=== PATIENT | female | born 1990 | race African-American/Black ===

== ENCOUNTER 2017-05-22 13:49 | Emergency (ER) | payer MEDICAID ==
[~2017-05-22] VITALS: Ht 157.5 cm; Wt 66.0 kg
[2017-05-22] MEDS ORDERED: KETOROLAC 60MG/2ML VIAL IM ONE (15:00)
[2017-05-22 15:08] VITALS: BP 137/90
== END 2017-05-22 17:51 | disposition home or self-care (01) ==
LOC: ER 14:36
DX: H60.91 Unspecified otitis externa, right ear (principal); F12.90 Cannabis use, unspecified, uncomplicated
CPT/HCPCS: 81025; 96372; 99283; J1885; X7700; Z7610

== ENCOUNTER 2017-08-15 16:01 | Emergency (ER) | payer MEDICAID ==
[~2017-08-15] VITALS: Ht 157.5 cm; Wt 79.0 kg
[2017-08-15 16:32] VITALS: BP 126/90
[2017-08-15] MEDS ORDERED: ACETAMINOPHEN 500MG TABLET PO ONE (17:30)
== END 2017-08-15 17:42 | disposition home or self-care (01) ==
LOC: ER 16:54
DX: B34.9 Viral infection, unspecified (principal); F12.10 Cannabis abuse, uncomplicated
CPT/HCPCS: 99283

== ENCOUNTER 2018-04-20 13:35 | Emergency (ER) | payer MEDICAID ==
[~2018-04-20] VITALS: Ht 157.5 cm; Wt 78.0 kg
[2018-04-20] MEDS ORDERED: IBUPROFEN 800MG TABLET PO ONE (15:00)
[2018-04-20 15:19] VITALS: BP 122/72
== END 2018-04-20 19:14 | disposition home or self-care (01) ==
LOC: ER 15:31
DX: K04.7 Periapical abscess without sinus (principal); F17.210 Nicotine dependence, cigarettes, uncomplicated
CPT/HCPCS: 81025; 99283

== ENCOUNTER 2018-11-23 07:45 | Emergency (ER) | payer MEDICAID ==
[~2018-11-23] VITALS: Ht 162.6 cm; Wt 65.0 kg
[2018-11-23] MEDS ORDERED: HYDROCODONE/ACETAMINOPHEN 5/325MG TABLET PO ONE (09:30)
[2018-11-23 09:33] VITALS: BP 127/77
== END 2018-11-23 11:13 | disposition home or self-care (01) ==
LOC: ER 07:45
DX: M25.571 Pain in right ankle and joints of right foot (principal); W01.0XXA Fall on same level from slipping, tripping and stumbling without subsequent striking against object, initial encounter; Y93.01 Activity, walking, marching and hiking; Y92.090 Kitchen in other non-institutional residence as the place of occurrence of the external cause
CPT/HCPCS: 73610; 73620; 81025; 99283

== ENCOUNTER 2025-06-11 12:55 | Emergency (ER) | payer MEDICAID, OTHER ==
[~2025-06-11] VITALS: Ht 157.5 cm; Wt 87.0 kg
[2025-06-11 13:28] VITALS: O2SAT 100
[2025-06-11] MEDS ORDERED: AMOX1TAB16 MT (14:37)
[2025-06-11] MEDS ORDERED: IBUP-2030 MT (14:37)
[2025-06-11] MEDS: KETOROLAC 30MG/ML VIAL IM ONE (14:53)
[2025-06-11] MEDS: HYDROCODONE/ACETAMINOPHEN 5/325MG TABLET PO ONE (14:53)
[2025-06-11 14:54] VITALS: BP 119/85; PULSE 68; RESP 18; TEMP 36.9; O2SAT 100
== END 2025-06-11 15:00 | disposition home or self-care (01) ==
LOC: ER 12:55
DX: K04.7 Periapical abscess without sinus (principal)
CPT/HCPCS: 99283; 81025; 96372; J1885